=== PATIENT | female | born 1940 | race Caucasian/White ===

== ENCOUNTER 2020-10-08 12:34 | Outpatient (CLI) | payer MEDICARE, OTHER, SELFPAY ==
[2020-10-08] VITALS (7 sets, daily range): BP systolic 145–178; BP diastolic 94–105; PULSE 96–138; RESP 14–18; TEMP 36.3; O2SAT 97–100
--- NOTE | 2020-10-08 12:38 | DI.RAD.S_ITS ---
PROCEDURE: PAIN L/S TRANSFORAMINAL INJECT INDICATIONS: SPONDYLOSIS COMPARISON: None. FINDINGS: Fluoroscopic spot filming was performed to verify placement of a spinal needle at the L5-S1 level, as labeled on the films. Appropriate location of the needle tip was confirmed by injection of iodinated contrast. IMPRESSION: No significant intraprocedural abnormality. Dictated by: James Aquino M.D. on 10/08/2020 at 13:19 Approved by: James Aquino M.D. on 10/08/2020 at 13:20
--- NOTE | 2020-10-08 12:59 | PC.NURSE ---
Patient reports history of chronic Afib - HR irregular and 112-[address] Mckeon aware. Patient vehemently declining any sedation for procedure.
[2020-10-08] MEDS: BUPIVACAINE 0.25% (PF) VIAL 1 ML INJ (13:16)
[2020-10-08] MEDS: IOPAMIDOL 15 ML VIAL 3 ML INJ (13:20)
[2020-10-08] MEDS: methylPREDNISolone acetate 80 MG/ML VIAL INJ (13:21)
[2020-10-08] MEDS: DEXAMETHASONE 10 MG/ML VIAL 20 MG INJ (13:21)
--- NOTE | 2020-10-08 13:25 | PM.PROC.IR.1 ---
Date/Time/Diagnoses Date of procedure: 10/08/20 Time of procedure: 13:25 Pre-procedure diagnosis: 1. FORAMINAL STENOSIS WITH LE SYMPTOMS Post-procedure diagnosis: same Procedure Notes Procedure: 1. FLUOROSCOPICALLY GUIDED CONTRAST CONTROLLED TRANSFORAMINAL EPIDURAL STEROID INJECTION - Left L5/S1 Indications: Ivy is referred by Dr. Christian for treatment of Foraminal Stenosis with Left LE Symptoms Physician: Kaleb Mckeon Total Fluoroscopy time (seconds): 6 Total sedation minutes: 0 Complications: none Procedure in detail & Post-procedure care: FINDINGS Foraminal Nerve Root Compression secondary to disc disease and facet hypertrophy DESCRIPTION OF PROCEDURE Following review of allergy and review of potential side effects and complications, including, but not necessarily limited to, infection, allergic reaction, local tissue breakdown, stroke, temporary or permanent nerve injury, paralysis, and possible , the patient indicated that the patient understood and agreed to proceed. An informed consent document was signed by the patient, witnessed by a nurse, and placed in the patient's chart. Additionally, other treatment options including medications, modalities, and physical therapy were reviewed with the patient. After review of previous anaesthesic history and IV conscious sedation the patient was deemed safe to proceed with today?s procedure with IV conscious sedation as ASA class II designation. Safety time-out was performed to confirm patient ID, procedure to be performed and site of procedure. IV sedation was deemed unnecessary and thus not administered by the RN after DO order, titrated to patient comfort during the course of the procedure while the patient remained responsive to all verbal commands In the prone position following sterile prep and drape of the lumbar region, the Left L5/S1 posterior neuroforamen was identified fluoroscopically. The skin was anesthetized via a 25-gauge 1.5-inch needle with 1% lidocaine solution. At this point, a 25-gauge 3.5-inch spinal needle was atraumatically introduced and advanced under fluoroscopic guidance through the posterior Left L5/S1 neuroforamen to approximately the anterior aspect of the canal. Depth was confirmed on lateral view. Following negative aspiration, injection of approximately 1.5 cc of Isovue 200 under live fluoroscopy in the AP view confirmed excellent flow along the nerve root, into the epidural space without vascular or intrathecal uptake observed Radiological data, including multiple fluoroscopic views of the lumbosacral spine, reveal a spinal needle at the Left L5/S1 posterior neuroforamen. Subsequent views show flow of contrast material flowing superiorly and inferiorly along the nerve root confirming epidural flow. Subsequently, a test dose of 1.5 cc of 1% lidocaine solution was administered and patient was observed for two minutes for signs or symptoms of complications, including abdominal pain, shortness of breath, bilateral upper or lower extremity weakness, nausea and vomiting, prior to steroid injection. At this point, a total of 3cc or 20mg of dexamethasone and 80mg Depo medrol was injected without incident. The procedure tolerated the procedure well without signs or symptoms of complications prior to transfer to the recovery area continued monitoring without incident. The patient was then transferred to the recovery area where they were observed for an appropriate time after the injection. The patient reported a VAS score of 7 prior to the procedure and a post-procedure VAS of 0. POST OP INSTRUCTIONS The patient was provided a Pain Log to continue to record their response to the target-specific procedure prior to follow-up visit with their referring physician. Additionally, specific post-injection care instructions and a contact number to our office were provided if concerns arise regarding possible complications associated with the procedure are suspected.
== END 2020-10-08 13:40 | disposition home or self-care (01) ==
PROVIDERS: Referring Provider Physical Medicine & Rehabilitation; Visit Provider Physical Medicine & Rehabilitation
DX: M48.07 Spinal stenosis, lumbosacral region (principal); M51.17 Intervertebral disc disorders with radiculopathy, lumbosacral region
CPT/HCPCS: 64483; J1040; J1100; J2250; J3010

== ENCOUNTER 2021-01-19 12:27 | Outpatient (CLI) | payer MEDICARE, OTHER, SELFPAY ==
--- NOTE | 2021-01-19 12:30 | DI.RAD.S_ITS ---
PROCEDURE: PAIN L/S TRANSFORAMINAL INJECT INDICATIONS: SPONDYLOSIS COMPARISON: [facility], , PAIN L/S TRANSFORAMINAL INJECT, 10/08/2020, 13:16. FINDINGS: Fluoroscopic spot filming was performed to verify placement of a spinal needle at the L3-L4 level, as labeled on the films. Appropriate location of the needle tip was confirmed by injection of iodinated contrast. IMPRESSION: Intraprocedural examination within normal limits. Dictated by: James Aquino M.D. on 01/19/2021 at 13:51 Approved by: James Aquino M.D. on 01/19/2021 at 13:51
[2021-01-19 12:48] VITALS: BP 135/90; PULSE 98; RESP 17; TEMP 36.2; O2SAT 99
[2021-01-19 13:03] VITALS: BP 133/89; PULSE 113; RESP 17; O2SAT 100
[2021-01-19 13:07] VITALS: BP 147/85; PULSE 113; RESP 14; O2SAT 99
[2021-01-19] MEDS: BETAMETHASONE 30 MG/5 ML MDV 12 MG INJ (13:08)
[2021-01-19] MEDS: IOPAMIDOL 15 ML VIAL 3 ML INJ (13:09)
[2021-01-19] MEDS: BUPIVACAINE 0.25% (PF) VIAL 2 ML INJ (13:10)
[2021-01-19] MEDS: DEXAMETHASONE 10 MG/ML VIAL 20 MG INJ (13:10)
[2021-01-19 13:12] VITALS: BP 144/82; PULSE 108; RESP 17; O2SAT 100
--- NOTE | 2021-01-19 13:16 | P.PCN_ITS ---
Date/Time/Diagnoses Date of procedure: 01/19/21 Time of procedure: 13:16 Pre-procedure diagnosis: 1. FORAMINAL STENOSIS WITH LE SYMPTOMS Post-procedure diagnosis: same Procedure Notes Procedure: 1. FLUOROSCOPICALLY GUIDED CONTRAST CONTROLLED TRANSFORAMINAL EPIDURAL STEROID INJECTION - LEFT L3/4 TFESI Indications: Ivy is referred by Dr. Orellana for treatment of Foraminal Stenosis with left LE Symptoms Physician: Kaleb Mckeon Total Fluoroscopy time (seconds): 5 Total sedation minutes: 0 Complications: none Procedure in detail & Post-procedure care: FINDINGS Foraminal Nerve Root Compression secondary to disc disease and facet hypertrophy DESCRIPTION OF PROCEDURE Following review of allergy and review of potential side effects and complications, including, but not necessarily limited to, infection, allergic reaction, local tissue breakdown, stroke, temporary or permanent nerve injury, paralysis, and possible , the patient indicated that the patient understood and agreed to proceed. An informed consent document was signed by the patient, witnessed by a nurse, and placed in the patient's chart. Additionally, other treatment options including medications, modalities, and physical therapy were reviewed with the patient. After review of previous anaesthesic history and IV conscious sedation the patient was deemed safe to proceed with today?s procedure with IV conscious sedation as ASA class II designation. Safety time-out was performed to confirm patient ID, procedure to be performed and site of procedure. IV sedation was deemed unnecessary and thus administered by the RN after DO order, titrated to patient comfort during the course of the procedure while the patient remained responsive to all verbal commands In the prone position following sterile prep and drape of the lumbar region, the left L3/4 posterior neuroforamen was identified fluoroscopically. The skin was anesthetized via a 25-gauge 1.5-inch needle with 1% lidocaine solution. At this point, a 25-gauge 3.5-inch spinal needle was atraumatically introduced and advanced under fluoroscopic guidance through the posterior left L3/4 neuroforamen to approximately the anterior aspect of the canal. Depth was confirmed on lateral view. Following negative aspiration, injection of approximately 1.5 cc of Isovue 200 under live fluoroscopy in the AP view confirmed excellent flow along the nerve root, into the epidural space without vascular or intrathecal uptake observed Radiological data, including multiple fluoroscopic views of the lumbosacral spine, reveal a spinal needle at the left L3/4 posterior neuroforamen. Subsequent views show flow of contrast material flowing superiorly and inferiorly along the nerve root confirming epidural flow. Subsequently, a test dose of 1.5cc of 1% lidocaine solution was administered and patient was observed for two minutes for signs or symptoms of complications, including abdominal pain, shortness of breath, bilateral upper or lower extremi ty weakness, nausea and vomiting, prior to steroid injection. At this point, a total of 3cc or 20mg of dexamethasone and 12mg betamethasone was injected without incident. The patient tolerated the procedure well without signs or symptoms of complications prior to transfer to the recovery area continued monitoring without incident. The patient was then transferred to the recovery area where they were observed for an appropriate time after the injection. The patient reported a VAS score of 7 prior to the procedure and a post-procedure VAS of 0. POST OP INSTRUCTIONS The patient was provided a Pain Log to continue to record their response to the target-specific procedure prior to follow-up visit with their referring physician. Additionally, specific post-injection care instructions and a contact number to our office were provided if concerns arise regarding possible complications associated with the procedure are suspected.
[2021-01-19 13:20] VITALS: BP 166/82; PULSE 98; RESP 20; O2SAT 99
[2021-01-19 13:39] VITALS: BP 148/87; PULSE 113; RESP 20; O2SAT 98
== END 2021-01-19 13:41 | disposition home or self-care (01) ==
LOC: RAD 12:29
PROVIDERS: PCP Family Medicine; Referring Provider Physical Medicine & Rehabilitation; Visit Provider Physical Medicine & Rehabilitation
DX: M48.061 Spinal stenosis, lumbar region without neurogenic claudication (principal)
CPT/HCPCS: 64483; J0702; J1100; J2250; J3010

== ENCOUNTER 2021-07-29 10:00 | Outpatient (CLI) | payer MEDICARE, OTHER, SELFPAY ==
--- NOTE | 2021-07-29 10:01 | DI.RAD.S_ITS ---
PROCEDURE: PAIN L/SI FACET INJ/BLK 1STL INDICATIONS: SPONDYLOSIS COMPARISON: [facility], XA, PAIN L/S TRANSFORAMINAL INJECT, 10/08/2020, 13:16. [facility], XA, PAIN L/S TRANSFORAMINAL INJECT, 01/19/2021, 13:08. FINDINGS: Fluoroscopic spot filming was performed to verify placement of spinal needles on the left at the L3-L4, L4-L5, and L5-S1 levels, as labeled on the films. Appropriate location of the needle tips was confirmed by injection of iodinated contrast. IMPRESSION: Intraprocedural examination within normal limits. Dictated by: James Aquino M.D. on 07/29/2021 at 10:54 Approved by: James Aquino M.D. on 07/29/2021 at 10:55
[2021-07-29 10:10] VITALS: BP 133/93; PULSE 105; RESP 18; TEMP 36.3; O2SAT 96
[2021-07-29 11:12] VITALS: BP 136/90; PULSE 130; RESP 18; O2SAT 100
[2021-07-29 11:17] VITALS: BP 150/93; PULSE 133; RESP 16; O2SAT 100
[2021-07-29] MEDS: BUPIVACAINE 0.5% (PF) VIAL 2 ML INJ (11:20)
[2021-07-29] MEDS: IOPAMIDOL 15 ML VIAL 3 ML INJ (11:20)
[2021-07-29] MEDS: BETAMETHASONE 30 MG/5 ML MDV 12 MG INJ (11:20)
[2021-07-29 11:22] VITALS: BP 154/86; PULSE 121; RESP 14; O2SAT 100
--- NOTE | 2021-07-29 11:26 | P.PCN_ITS ---
Date/Time/Diagnoses Date of procedure: 07/29/21 Time of procedure: 11:26 Pre-procedure diagnosis: 1. FACET ARTHROPATHY, 2. AXIAL LBP, 3. MULTILEVEL DDD Post-procedure diagnosis: same Procedure Notes Procedure: 1. FLUOROSCOPICALLY GUIDED CONTRAST CONTROLLED FACET JOINT INJECTIONS LEFT L3/4, L4/5, L5/S1 Indications: Ivy is referred by Dr. Orellana for treatment of Axial LBP Physician: Kaleb Mckeon Total Fluoroscopy time (seconds): 8 Total sedation minutes: 0 Complications: none Procedure in detail & Post-procedure care: FINDINGS Multilevel Facet Arthropathy with Clinically significant axial LBP DESCRIPTION OF PROCEDURE Fluoroscopically guided, contrast-controlled left L3/4, L4/5, L5/S1 facet joint injections. Following review of allergy and review of potential side effects and complications, including, but not necessarily limited to, infection, allergic reaction, local tissue breakdown, stroke, temporary or permanent nerve injury, paralysis, and possible , the patient indicated that the patient understood and agreed to proceed. An informed consent document was signed by the patient, witnessed by a nurse, and placed in the patient's chart. Additionally, other treatment options including medications, modalities, and physical therapy were reviewed with the patient. After review of previous anaesthesic history and IV conscious sedation the patient was deemed safe to proceed with today?s procedure with IV conscious sedation as ASA class II designation. Safety time-out was performed to confirm patient ID, procedure to be performed and site of procedure. IV sedation was deemed unnecessary and thus not administered by the RN after DO order, titrated to patient comfort during the course of the procedure while the patient remained responsive to all verbal commands. In the prone position, following sterile prep and drape of the lumbar region, the posterior aspect of the left L3/4, L4/5, L5/S1 facet joints were identified fluoroscopically. The skin was anesthetized via a 25-gauge 1.5-inch needle with 1% lidocaine solution into the corresponding facet joints. At this point, a 22- gauge 3.5-inch spinal needle was atraumatically introduced and advanced under fluoroscopic guidance into the corresponding facet joints. Following negative aspiration, injections of approximately 0.2-cc of Isovue 200 confirmed inter articular placement without vascular uptake. Radiological data, including multiple fluoroscopic views of the lumbosacral spine, reveal a spinal needle at the left L3/4, L4/5, L5/S1 facet joints. Subsequent views show flow of contrast material both superiorly and inferiorly within the joint space without vascular or intrathecal uptake. At this point, a total of 0.5 cc including a mixture of 0.25cc Marcaine and 0.25 cc betamethasone was injected without complication into each of the corresponding facet joints. The procedure tolerated the procedure well without signs or symptoms of complications prior to transfer to the recovery area continued monitoring without incident. The patient was then transferred to the recovery area where they were observed for an appropriate period of time after the injection. The patient reported a VAS score of 7 prior to the procedure and a post-procedure VAS of 0. POST OP INSTRUCTIONS The patient was provided a Pain Log to continue to record their response to the target-specific procedure prior to follow-up visit with their referring physician. Additionally, specific post-injection care instructions and a contact number to our office were provided if concerns arise regarding possible complications associated with the procedure are suspected.
[2021-07-29 11:30] VITALS: BP 145/100; PULSE 128; RESP 18; O2SAT 99
[2021-07-29 11:33] VITALS: BP 144/92; PULSE 129; RESP 17; O2SAT 99
--- NOTE | 2021-07-29 11:35 | PC.NURSE ---
Patient in rapid Afib, rate 120's-130's during and after the procedure. Patient reports holding her metoprolol this AM. BP stable. Patient asymptomatic. Dr. Mckeon aware, patient ok to be discharged home to take her home medication.
== END 2021-07-29 11:37 | disposition home or self-care (01) ==
LOC: RAD 10:01
PROVIDERS: PCP Family Medicine; Referring Provider Physical Medicine & Rehabilitation; Visit Provider Physical Medicine & Rehabilitation
DX: M47.816 Spondylosis without myelopathy or radiculopathy, lumbar region (principal); M47.817 Spondylosis without myelopathy or radiculopathy, lumbosacral region; M51.36 Other intervertebral disc degeneration, lumbar region; M51.37 Other intervertebral disc degeneration, lumbosacral region
CPT/HCPCS: 64493; 64494; 64495; J0702; J2250

== ENCOUNTER → 2021-09-06 10:52 | Outpatient (CLI) | payer MEDICARE, OTHER, SELFPAY ==
[2021-09-06 14:03] LABS: COVID19 -Nasal RAPID Negative (Negative)
== END ==
PROVIDERS: PCP Family Medicine; Visit Provider Physical Medicine & Rehabilitation
DX: Z20.822 Contact with and (suspected) exposure to COVID-19 (principal)
CPT/HCPCS: 87635; C9803

== ENCOUNTER 2021-09-07 13:05 | Outpatient (CLI) | payer MEDICARE, OTHER, SELFPAY ==
--- NOTE | 2021-09-07 13:12 | DI.RAD.S_ITS ---
PROCEDURE: PAIN L/S TRANSFORAMINAL INJECT INDICATIONS: SPONDYLOSIS COMPARISON: [facility], , PAIN L/S TRANSFORAMINAL INJECT, 01/19/2021, 13:08. FINDINGS: Multiple spot images are submitted and demonstrate placement of a needle at the lumbosacral junction. IMPRESSION: Needle placement as above. Dictated by: Rubén Davis M.D. on 09/07/2021 at 14:29 Approved by: Rubén Davis M.D. on 09/07/2021 at 16:40
[2021-09-07 13:20] VITALS: BP 162/95; PULSE 107; RESP 18; TEMP 36.3; O2SAT 98
[2021-09-07 13:48] VITALS: BP 150/95; PULSE 120; RESP 12; O2SAT 100
[2021-09-07 13:52] VITALS: BP 157/93; PULSE 115; RESP 14; O2SAT 100
[2021-09-07] MEDS: BUPIVACAINE 0.25% (PF) VIAL 2 ML INJ (13:52)
[2021-09-07] MEDS: IOPAMIDOL 15 ML VIAL 3 ML INJ (13:52)
[2021-09-07] MEDS: BETAMETHASONE 30 MG/5 ML MDV 6 MG INJ (13:53)
[2021-09-07] MEDS: DEXAMETHASONE 10 MG/ML VIAL 20 MG INJ (13:53)
[2021-09-07 13:57] VITALS: BP 153/93; PULSE 112; RESP 18; O2SAT 100
[2021-09-07 14:00] VITALS: BP 149/98; PULSE 108; RESP 18; O2SAT 98
--- NOTE | 2021-09-07 14:00 | PM.PROC.IR.1 ---
Date/Time/Diagnoses Date of procedure: 09/07/21 Time of procedure: 14:00 Pre-procedure diagnosis: 1. FORAMINAL STENOSIS WITH LE SYMPTOMS Post-procedure diagnosis: same Procedure Notes Procedure: 1. FLUOROSCOPICALLY GUIDED CONTRAST CONTROLLED TRANSFORAMINAL EPIDURAL STEROID INJECTION - Left L5/S1 Indications: Ivy is referred by Dr. Orellana for treatment of Foraminal Stenosis with Left LE Symptoms Physician: Kaleb Mckeon Total Fluoroscopy time (seconds): 12 Total sedation minutes: 0 Complications: none Procedure in detail & Post-procedure care: FINDINGS Foraminal Nerve Root Compression secondary to disc disease and facet hypertrophy DESCRIPTION OF PROCEDURE Following review of allergy and review of potential side effects and complications, including, but not necessarily limited to, infection, allergic reaction, local tissue breakdown, stroke, temporary or permanent nerve injury, paralysis, and possible , the patient indicated that the patient understood and agreed to proceed. An informed consent document was signed by the patient, witnessed by a nurse, and placed in the patient's chart. Additionally, other treatment options including medications, modalities, and physical therapy were reviewed with the patient. After review of previous anaesthesic history and IV conscious sedation the patient was deemed safe to proceed with today?s procedure with IV conscious sedation as ASA class II designation. Safety time-out was performed to confirm patient ID, procedure to be performed and site of procedure. IV sedation was deemed unnecessary and thus was not administered by the RN after DO order, titrated to patient comfort during the course of the procedure while the patient remained responsive to all verbal commands In the prone position following sterile prep and drape of the lumbar region, the Left L5/S1 posterior neuroforamen was identified fluoroscopically. The skin was anesthetized via a 25-gauge 1.5-inch needle with 1% lidocaine solution. At this point, a 25-gauge 3.5-inch spinal needle was atraumatically introduced and advanced under fluoroscopic guidance through the posterior Left L5/S1 neuroforamen to approximately the anterior aspect of the canal. Depth was confirmed on lateral view. Following negative aspiration, injection of approximately 1.5 cc of Isovue 200 under live fluoroscopy in the AP view confirmed excellent flow along the nerve root, into the epidural space without vascular or intrathecal uptake observed Radiological data, including multiple fluoroscopic views of the lumbosacral spine, reveal a spinal needle at the Left L5/S1 posterior neuroforamen. Subsequent views show flow of contrast material flowing superiorly and inferiorly along the nerve root confirming epidural flow. Subsequently, a test dose of 1.5 cc of 1% lidocaine solution was administered and patient was observed for two minutes for signs or symptoms of complications, including abdominal pain, shortness of breath, bilateral upper or lower extremity weakness, nausea and vomiting, prior to steroid injection. At this point, a total of 3cc or 20mg of dexamethasone and 6mg of betamethasone was injected without incident. The procedure tolerated the procedure well without signs or symptoms of complications prior to transfer to the recovery area continued monitoring without incident. The patient was then transferred to the recovery area where they were observed for an appropriate time after the injection. The patient reported a VAS score of 7 prior to the procedure and a post-procedure VAS of 0. POST OP INSTRUCTIONS The patient was provided a Pain Log to continue to record their response to the target-specific procedure prior to follow-up visit with their referring physician. Additionally, specific post-injection care instructions and a contact number to our office were provided if concerns arise regarding possible complications associated with the procedure are suspected.
[2021-09-07 14:05] VITALS: BP 157/76; PULSE 106; RESP 18; O2SAT 99
== END 2021-09-07 14:15 | disposition home or self-care (01) ==
PROVIDERS: PCP Family Medicine; Referring Provider Physical Medicine & Rehabilitation; Visit Provider Physical Medicine & Rehabilitation
DX: M48.07 Spinal stenosis, lumbosacral region (principal)
CPT/HCPCS: 64483; J0702; J1100

== ENCOUNTER 2022-01-04 09:45 | Outpatient (CLI) | payer MEDICARE, OTHER, SELFPAY ==
--- NOTE | 2022-01-04 09:51 | DI.RAD.S_ITS ---
PROCEDURE: PAIN SI JOINT INJECTION INDICATIONS: SACROILIAC DISORDER COMPARISON: [facility], RG, XR L-SPINE 4-6V, 01/11/2021, 14:40. FINDINGS: Fluoroscopic spot filming was performed to verify placement of spinal needles at the inferior left SI joint, as labeled on the films. Appropriate location(s) of the needle tip(s) was confirmed by injection of iodinated contrast. IMPRESSION: Fluoroscopy for pain management. Dictated by: Colette Colin M.D. on 01/04/2022 at 16:56 Approved by: Colette Colin M.D. on 01/04/2022 at 16:57
[2022-01-04 10:20] VITALS: BP 122/90; PULSE 71; RESP 18; TEMP 37; O2SAT 99
[2022-01-04 10:28] LABS: COVID19 -Nasal RAPID Negative (Negative)
[2022-01-04 11:00] VITALS: BP 140/80; PULSE 80; RESP 16; O2SAT 100
[2022-01-04 11:03] VITALS: BP 139/75; PULSE 72; RESP 12; O2SAT 100
[2022-01-04] MEDS: BUPIVACAINE 0.5% (PF) VIAL 2 ML INJ (11:03)
[2022-01-04] MEDS: BETAMETHASONE 30 MG/5 ML MDV 12 MG INJ (11:03)
[2022-01-04] MEDS: IOPAMIDOL 15 ML VIAL 3 ML INJ (11:03)
[2022-01-04 11:04] VITALS: BP 134/86; PULSE 86; RESP 15; O2SAT 100
[2022-01-04 11:10] VITALS: BP 140/85; PULSE 71; RESP 18; O2SAT 100
--- NOTE | 2022-01-04 11:12 | PM.PROC.IR.1 ---
Date/Time/Diagnoses Date of procedure: 01/04/22 Time of procedure: 11:12 Pre-procedure diagnosis: Sacroiliac Joint Pain/DJD Post-procedure diagnosis: same Procedure Notes Procedure: Fluoroscopically guided contrast controlled left sacroiliac joint injection Indications: Ivy is referred by Dr. Orellana for treatment of left sacroiliac joint DJD Physician: Kaleb Mckeon Total Fluoroscopy time (seconds): 7 Total sedation minutes: 0 Complications: none Procedure in detail & Post-procedure care: DESCRIPTION OF PROCEDURE Fluoroscopic guided, contrast controlled left sacroiliac joint injection Following review of allergies and review of potential side effects and complications, including, but not necessarily limited to, infection, allergic reaction, local tissue breakdown, temporary as well as permanent nerve injury, paralysis, stroke and possible , the patient indicated that they understood and agreed to proceed. An informed consent was signed by the patient, witnessed by a nurse, and placed in the patient's chart. Additionally, other treatment options including modalities, medications, and physical therapy were reviewed with the patient. After review of previous anaesthesic history and IV conscious sedation the patient was deemed safe to proceed with today?s procedure with IV conscious sedation as ASA class II designation. Safety time-out was performed to confirm patient ID, procedure to be performed and site of procedure. IV sedation was deemed unnecessary and thus not administered by the RN after DO order, titrated to patient comfort during the course of the procedure while the patient remained responsive to all verbal commands. In the prone position following sterile prep and drape of the pelvic region, the hyper lucency on in the inferior aspect of the left sacroiliac joint was identified fluoroscopically the skin was anesthetized be a 25 gauge 1 eventual with approximately 2cc of 1% lidocaine solution. At this point, a 22 gauge 3inch spinal needle was atraumatically introduced and advanced under fluoroscopic guidance into the inferior aspect of the left sacroiliac joint. Following negative aspiration, approximately 0.3cc of Isovue-300 was injected confirming intra-articular placement without vascular uptake. Radiographic data, including multiple fluoroscopic views of the pelvis, reveals a spinal needle in the left sacroiliac joint hyper lucent zone. Subsequent view show flow contrast tear superiorly and inferiorly within the joint capsule without vascular intrathecal uptake. At this point a total of 1cc or 0.5% Marcaine was combined with 1cc of 6mg of betamethasone was injected without incident. The patient tolerated the procedure well without signs or symptoms of complications prior to transfer to the recovery area for further monitoring. The patient was then transferred to the recovery area with a bur observed for an appropriate time after the injection. The patient reverted a vas score of 7 prior to the procedure and postprocedure vas of 1. POSTOP INSTRUCTIONS The patient was provided with a pain like to continue to record the patient's response to the target specific procedure prior to the patient's follow-up visit with the referring physician. Additionally, specific post injection care instructions and a contact number to our office were provided if concerns arise regarding the possible complications associated with procedure are suspected.
[2022-01-04 11:15] VITALS: BP 123/83; PULSE 80; RESP 13; O2SAT 100
== END 2022-01-04 11:30 | disposition home or self-care (01) ==
LOC: RAD 09:48
PROVIDERS: PCP Family Medicine; Referring Provider Physical Medicine & Rehabilitation; Visit Provider Physical Medicine & Rehabilitation
DX: M53.3 Sacrococcygeal disorders, not elsewhere classified (principal); Z20.822 Contact with and (suspected) exposure to COVID-19
CPT/HCPCS: 27096; 87635; J0702

== ENCOUNTER 2022-07-26 12:58 | Outpatient (CLI) | payer MEDICARE, OTHER, SELFPAY ==
--- NOTE | 2022-07-26 13:00 | DI.RAD.S_ITS ---
PROCEDURE: PAIN L/S TRANSFORAMINAL INJECT INDICATIONS: SPONDYLOSIS COMPARISON: [facility], , PAIN L/S TRANSFORAMINAL INJECT, 09/07/2021, 13:51. FINDINGS: Fluoroscopic spot filming was performed to verify placement of a spinal needle at the left L5 nerve root level(s), as labeled on the films. IMPRESSION: Imaging guidance provided for left L5 transforaminal epidural steroid injection. Dictated by: Caden Rubio M.D. on 07/26/2022 at 15:56 Approved by: Caden Rubio M.D. on 07/26/2022 at 15:58
[2022-07-26 13:08] VITALS: BP 150/97; PULSE 95; RESP 20; TEMP 36.4; O2SAT 100
[2022-07-26 13:56] VITALS: BP 135/83; PULSE 110; RESP 13; O2SAT 97
[2022-07-26 14:00] VITALS: BP 132/89; PULSE 101; RESP 19; O2SAT 98
[2022-07-26] MEDS: DEXAMETHASONE 10 MG/ML VIAL 20 MG INJ (14:02)
[2022-07-26] MEDS: BETAMETHASONE 30 MG/5 ML MDV 6 MG INJ (14:02)
[2022-07-26] MEDS: IOPAMIDOL 15 ML VIAL 3 ML INJ (14:02)
[2022-07-26] MEDS: BUPIVACAINE 0.25% (PF) VIAL 2 ML INJ (14:03)
[2022-07-26 14:05] VITALS: BP 139/81; PULSE 103; RESP 19; O2SAT 97
[2022-07-26 14:11] VITALS: BP 157/86; PULSE 86; RESP 18; O2SAT 96
--- NOTE | 2022-07-26 14:16 | PM.PROC.IR.1 ---
Date/Time/Diagnoses Date of procedure: 07/26/22 Time of procedure: 14:16 Pre-procedure diagnosis: 1. FORAMINAL STENOSIS WITH LE SYMPTOMS Post-procedure diagnosis: same Procedure Notes Procedure: 1. FLUOROSCOPICALLY GUIDED CONTRAST CONTROLLED TRANSFORAMINAL EPIDURAL STEROID INJECTION - Left L5/S1 Indications: Ivy is referred by Dr. Orellana for treatment of Foraminal Stenosis with Left LE Symptoms Physician: Kaleb Mckeon Total Fluoroscopy time (seconds): 12 Total sedation minutes: 0 Complications: none Procedure in detail & Post-procedure care: FINDINGS Foraminal Nerve Root Compression secondary to disc disease and facet hypertrophy DESCRIPTION OF PROCEDURE Following review of allergy and review of potential side effects and complications, including, but not necessarily limited to, infection, allergic reaction, local tissue breakdown, stroke, temporary or permanent nerve injury, paralysis, and possible , the patient indicated that the patient understood and agreed to proceed. An informed consent document was signed by the patient, witnessed by a nurse, and placed in the patient's chart. Additionally, other treatment options including medications, modalities, and physical therapy were reviewed with the patient. After review of previous anaesthesic history and IV conscious sedation the patient was deemed safe to proceed with today?s procedure with IV conscious sedation as ASA class II designation. Safety time-out was performed to confirm patient ID, procedure to be performed and site of procedure. IV sedation was deemed unnecessary and thus not administered by the RN after DO order, titrated to patient comfort during the course of the procedure while the patient remained responsive to all verbal commands In the prone position following sterile prep and drape of the lumbar region, the Left L5/S1 posterior neuroforamen was identified fluoroscopically. The skin was anesthetized via a 25-gauge 1.5-inch needle with 1% lidocaine solution. At this point, a 25-gauge 3.5-inch spinal needle was atraumatically introduced and advanced under fluoroscopic guidance through the posterior Left L5/S1 neuroforamen to approximately the anterior aspect of the canal. Depth was confirmed on lateral view. Following negative aspiration, injection of approximately 1.5 cc of Isovue 200 under live fluoroscopy in the AP view confirmed excellent flow along the nerve root, into the epidural space without vascular or intrathecal uptake observed Radiological data, including multiple fluoroscopic views of the lumbosacral spine, reveal a spinal needle at the Left L5/S1 posterior neuroforamen. Subsequent views show flow of contrast material flowing superiorly and inferiorly along the nerve root confirming epidural flow. Subsequently, a test dose of 1.5 cc of 1% lidocaine solution was administered and patient was observed for two minutes for signs or symptoms of complications, including abdominal pain, shortness of breath, bilateral upper or lower extremity weakness, nausea and vomiting, prior to steroid injection. At this point, a total of 3cc or 20mg of dexamethasone and 6mg of betamethasone was injected without incident. The procedure tolerated the procedure well without signs or symptoms of complications prior to transfer to the recovery area continued monitoring without incident. The patient was then transferred to the recovery area where they were observed for an appropriate time after the injection. The patient reported a VAS score of 7 prior to the procedure and a post-procedure VAS of 0. POST OP INSTRUCTIONS The patient was provided a Pain Log to continue to record their response to the target-specific procedure prior to follow-up visit with their referring physician. Additionally, specific post-injection care instructions and a contact number to our office were provided if concerns arise regarding possible complications associated with the procedure are suspected.
== END 2022-07-26 14:19 | disposition home or self-care (01) ==
LOC: RAD 12:59
PROVIDERS: PCP Family Medicine; Referring Provider Physical Medicine & Rehabilitation; Visit Provider Physical Medicine & Rehabilitation
DX: M48.07 Spinal stenosis, lumbosacral region (principal); M51.17 Intervertebral disc disorders with radiculopathy, lumbosacral region
CPT/HCPCS: 64483; J0702; J1100; J3490

== ENCOUNTER → 2022-10-12 13:14 | Outpatient (CLI) | payer MEDICARE, OTHER, SELFPAY ==
--- NOTE | 2022-10-12 13:16 | DI.RAD.S_ITS ---
PROCEDURE: XR HIP W PEL IF DONE JADEN MIN 4V INDICATIONS: left hip djd TECHNIQUE: AP pelvis with lateral view(s) of the bilateral hip(s). COMPARISON: None. FINDINGS: Bones: No fractures or dislocations. Pelvic ring appears intact. No suspicious bony lesions. Moderate degenerative hip joint space narrowing. Minimal periarticular osteophytes. No erosions. Degenerative changes are present within the lower lumbar spine. Soft tissues: The visualized bowel gas pattern is normal. No suspicious soft tissue calcifications. IMPRESSION: Bilateral hip arthritis as above. Dictated by: May Khoury M.D. on 10/12/2022 at 15:50 Approved by: May Khoury M.D. on 10/12/2022 at 15:51
== END ==
PROVIDERS: PCP Family Medicine; Referring Provider Physical Medicine & Rehabilitation; Visit Provider Physical Medicine & Rehabilitation
DX: M16.0 Bilateral primary osteoarthritis of hip (principal); M25.552 Pain in left hip; M53.3 Sacrococcygeal disorders, not elsewhere classified; M47.26 Other spondylosis with radiculopathy, lumbar region; Z79.01 Long term (current) use of anticoagulants
CPT/HCPCS: 20611; 73522; 99214; J0702

== ENCOUNTER 2024-02-08 14:48 | Outpatient (CLI) | payer MEDICARE, OTHER, SELFPAY ==
[2024-02-08 15:05] VITALS: BP 131/80; PULSE 87; RESP 16; TEMP 36.6; O2SAT 97
--- NOTE | 2024-02-08 15:23 | DI.RAD.S_ITS ---
PROCEDURE: PAIN L/S TRANSFORAMINAL INJECT INDICATIONS: Left L2/3 TFESI COMPARISON: [facility], , PAIN L/S TRANSFORAMINAL INJECT, 07/26/2022, 14:01. FINDINGS: Fluoroscopic spot filming was performed to verify placement of spinal needles at the left L5-S1 level(s), as labeled on the films. Appropriate location(s) of the needle tip(s) was confirmed by injection of iodinated contrast. IMPRESSION: Needle placement at left L5-S1 levels with contrast injection. Approved by: Marquita Miller M.D.,Ph.D. on 02/09/2024 at 3:36
[2024-02-08 15:30] VITALS: BP 161/86; PULSE 102; RESP 15; O2SAT 99
[2024-02-08] MEDS: BUPIVACAINE 0.25% (PF) VIAL 2 ML INJ (15:36)
[2024-02-08] MEDS: DEXAMETHASONE 10 MG/ML VIAL 20 MG INJ (15:37)
[2024-02-08] MEDS: iopamidoL 15 ML VIAL 3 ML INJ (15:38)
[2024-02-08] MEDS: BETAMETHASONE 30 MG/5 ML MDV 12 MG INJ (15:38)
[2024-02-08 15:45] VITALS: BP 138/89; PULSE 97; RESP 15; O2SAT 99
--- NOTE | 2024-02-08 15:54 | P.PCN_ITS ---
Date/Time/Diagnoses Date of procedure: 02/08/24 Time of procedure: 15:54 Pre-procedure diagnosis: FORAMINAL STENOSIS WITH LE SYMPTOMS Post-procedure diagnosis: same Procedure Notes Procedure: 1. FLUOROSCOPICALLY GUIDED CONTRAST CONTROLLED TRANSFORAMINAL EPIDURAL STEROID INJECTION - LEFT L5/S1 TFESI Indications: Ivy is referred by Dr. Orellana for treatment of Foraminal Stenosis with Left LE Symptoms Physician: Kaleb Mckeon Total Fluoroscopy time (seconds): 19 Total sedation minutes: 0 Complications: none Procedure in detail & Post-procedure care: FINDINGS Foraminal Nerve Root Compression secondary to disc disease and facet hypertrophy DESCRIPTION OF PROCEDURE Following review of allergy and review of potential side effects and complications, including, but not necessarily limited to, infection, allergic reaction, local tissue breakdown, stroke, temporary or permanent nerve injury, paralysis, and possible , the patient indicated that the patient understood and agreed to proceed. An informed consent document was signed by the patient, witnessed by a nurse, and placed in the patient's chart. Additionally, other treatment options including medications, modalities, and physical therapy were reviewed with the patient. After review of previous anaesthesic history and IV conscious sedation the patient was deemed safe to proceed with today?s procedure with IV conscious sedation as ASA class II designation. Safety time-out was performed to confirm patient ID, procedure to be performed and site of procedure. IV sedation was not administered by the RN after DO order, titrated to patient comfort during the course of the procedure while the patient remained responsive to all verbal commands In the prone position following sterile prep and drape of the lumbar region, the left L5/S1 posterior neuroforamen was identified fluoroscopically. The skin was anesthetized via a 25-gauge 1.5-inch needle with 1% lidocaine solution. At this point, a 25-gauge 3.5-inch spinal needle was atraumatically introduced and advanced under fluoroscopic guidance through the posterior left L5/S1 neuroforamen to approximately the anterior aspect of the canal. Depth was confirmed on lateral view. Following negative aspiration, injection of approximately 1.5cc of Isovue 200 under live fluoroscopy in the AP view confirmed excellent flow along the nerve root, into the epidural space without vascular or intrathecal uptake observed Radiological data, including multiple fluoroscopic views of the lumbosacral spine, reveal a spinal needle at the left L5/S1 posterior neuroforamen. Subsequent views show flow of contrast material flowing superiorly and inferiorly along the nerve root confirming epidural flow. Subsequently, a test dose of 1.5 cc of 1% lidocaine solution was administered and patient was observed for two minutes for signs or symptoms of complications, including abdominal pain, shortness of breath, bilateral upper or lower extremity weakness, nausea and vomiting, prior to steroid injection. At this point, a total of 2cc or 10mg of dexamethasone and 6mg of betamethasone was injected without incident. The procedure tolerated the procedure well without signs or symptoms of compli cations prior to transfer to the recovery area continued monitoring without incident. The patient was then transferred to the recovery area where they were observed for an appropriate time after the injection. The patient reported a VAS score of 7 prior to the procedure and a post- procedure VAS of 0. POST OP INSTRUCTIONS The patient was provided a Pain Log to continue to record their response to the target-specific procedure prior to follow-up visit with their referring physician. Additionally, specific post-injection care instructions and a contact number to our office were provided if concerns arise regarding possible complications associated with the procedure are suspected.
--- NOTE | 2024-02-08 15:55 | P.PCN_ITS ---
Date/Time/Diagnoses Date of procedure: 02/08/24 Time of procedure: 15:55 Pre-procedure diagnosis: 1. FORAMINAL STENOSIS WITH LE SYMPTOMS Post-procedure diagnosis: same Procedure Notes Procedure: 1. FLUOROSCOPICALLY GUIDED CONTRAST CONTROLLED TRANSFORAMINAL EPIDURAL STEROID INJECTION - LEFT L2/3 TFESI Indications: Ivy is referred by Dr. Orellana for treatment of Foraminal Stenosis with left LE Symptoms Physician: Kaleb Mckeon Total Fluoroscopy time (seconds): 19 Total sedation minutes: 0 Complications: none Procedure in detail & Post-procedure care: FINDINGS Foraminal Nerve Root Compression secondary to disc disease and facet hypertrophy DESCRIPTION OF PROCEDURE Following review of allergy and review of potential side effects and complications, including, but not necessarily limited to, infection, allergic reaction, local tissue breakdown, stroke, temporary or permanent nerve injury, paralysis, and possible , the patient indicated that the patient understood and agreed to proceed. An informed consent document was signed by the patient, witnessed by a nurse, and placed in the patient's chart. Additionally, other treatment options including medications, modalities, and physical therapy were reviewed with the patient. After review of previous anaesthesic history and IV conscious sedation the patient was deemed safe to proceed with today?s procedure with IV conscious sedation as ASA class II designation. Safety time-out was performed to confirm patient ID, procedure to be performed and site of procedure. IV sedation was not administered by the RN after DO order, titrated to patient comfort during the course of the procedure while the patient remained responsive to all verbal commands In the prone position following sterile prep and drape of the lumbar region, the left L2/3 posterior neuroforamen was identified fluoroscopically. The skin was anesthetized via a 25-gauge 1.5-inch needle with 1% lidocaine solution. At this point, a 25-gauge 3.5-inch spinal needle was atraumatically introduced and advanced under fluoroscopic guidance through the posterior left L3/4 neuroforamen to approximately the anterior aspect of the canal. Depth was conf irmed on lateral view. Following negative aspiration, injection of approximately 1.5 cc of Isovue 200 under live fluoroscopy in the AP view confirmed excellent flow along the nerve root, into the epidural space without vascular or intrathecal uptake observed Radiological data, including multiple fluoroscopic views of the lumbosacral spine, reveal a spinal needle at the left L2/3 posterior neuroforamen. Subsequent views show flow of contrast material flowing superiorly and inferiorly along the nerve root confirming epidural flow. Subsequently, a test dose of 1.5cc of 1% lidocaine solution was administered and patient was observed for two minutes for signs or symptoms of complications, including abdominal pain, shortness of breath, bilateral upper or lower extremity weakness, nausea and vomiting, prior to steroid injection. At this point, a total of 2cc or 10mg of dexamethasone and 6mg betamethasone was injected without incident. The patient tolerated the procedure well without signs or symptoms of complications prior to transfer to the recovery area continued monitoring without incident. The patient was then transferred to the recovery area where they were observed for an appropriate time after the injection. The patient reported a VAS score of 7 prior to the procedure and a post-procedure VAS of 0. POST OP INSTRUCTIONS The patient was provided a Pain Log to continue to record their response to the target-specific procedure prior to follow-up visit with their referring physician. Additionally, specific post-injection care instructions and a contact number to our office were provided if concerns arise regarding possible complications associated with the procedure are suspected.
[2024-02-08 15:56] VITALS: BP 149/91; PULSE 94; RESP 14; O2SAT 96
== END 2024-02-08 16:04 | disposition home or self-care (01) ==
LOC: RAD 14:49
PROVIDERS: PCP Family Medicine; Referring Provider Physical Medicine & Rehabilitation; Visit Provider Physical Medicine & Rehabilitation
DX: M48.07 Spinal stenosis, lumbosacral region (principal); M48.061 Spinal stenosis, lumbar region without neurogenic claudication; M51.17 Intervertebral disc disorders with radiculopathy, lumbosacral region; M47.27 Other spondylosis with radiculopathy, lumbosacral region; M51.16 Intervertebral disc disorders with radiculopathy, lumbar region; M47.26 Other spondylosis with radiculopathy, lumbar region
CPT/HCPCS: 64483; 64484; 99152; J0702; J1100; J3490